=== PATIENT | male | born 1985 | race Caucasian/White ===

== ENCOUNTER 2018-05-18 00:47 | Emergency (ER) | payer MEDICAID, OTHER ==
[~2018-05-18] VITALS: Ht 172.7 cm; Wt 77.0 kg
[2018-05-18 00:52] VITALS: BP 128/88
[2018-05-18] MEDS ORDERED: acetaminophen 325mg tablet PO ONE (05:25)
== END 2018-05-18 05:51 | disposition home or self-care (01) ==
LOC: ER 00:48 → EEVIPCON 00:48 → ER 05:51
DX: S93.401A Sprain of unspecified ligament of right ankle, initial encounter (principal); M79.671 Pain in right foot; X50.1XXA Overexertion from prolonged static or awkward postures, initial encounter; Y93.89 Activity, other specified; Y92.89 Other specified places as the place of occurrence of the external cause; Y99.8 Other external cause status
CPT/HCPCS: 73630; 99284

== ENCOUNTER 2018-05-20 18:21 | Emergency (ER) | payer OTHER ==
[~2018-05-20] VITALS: Ht 172.7 cm; Wt 88.6 kg
[2018-05-20 18:55] VITALS: BP 126/85
== END 2018-05-20 19:37 | disposition home or self-care (01) ==
LOC: ER 18:22
DX: Z00.00 Encounter for general adult medical examination without abnormal findings (principal)
CPT/HCPCS: 99281

== ENCOUNTER 2018-11-08 19:36 | Emergency (ER) | payer OTHER ==
[~2018-11-08] VITALS: Ht 172.7 cm; Wt 87.7 kg
[2018-11-08 19:47] VITALS: BP 135/93
== END 2018-11-08 21:48 | disposition home or self-care (01) ==
LOC: ER 19:37
DX: S60.512A Abrasion of left hand, initial encounter (principal); W50.4XXA Accidental scratch by another person, initial encounter; Y93.89 Activity, other specified; Y92.89 Other specified places as the place of occurrence of the external cause; Y99.8 Other external cause status
CPT/HCPCS: 99281

== ENCOUNTER 2018-11-19 04:49 | Emergency (ER) | payer MEDICAID, OTHER ==
[~2018-11-19] VITALS: Ht 172.7 cm; Wt 90.0 kg
[2018-11-19 04:57] VITALS: BP 127/93
[2018-11-19] MEDS ORDERED: AMOX-422 PO (05:09)
[2018-11-19] MEDS ORDERED: amox tr/potassium clavulanate 875/125mg TAB PO ONE (05:10)
[2018-11-19] MEDS ORDERED: ibuprofen tablet 400 MG TABLET PO ONE (05:10)
== END 2018-11-19 05:23 | disposition home or self-care (01) ==
LOC: ER 04:50
DX: H60.8X2 Other otitis externa, left ear (principal); Z98.890 Other specified postprocedural states
CPT/HCPCS: 99283